=== PATIENT | male | born 1990 | race Two or more races ===

== ENCOUNTER 2021-02-10 15:58 | Emergency (ER) | payer MEDICAID, SELFPAY ==
[~2021-02-10] VITALS: Ht 182.9 cm; Wt 251.5 kg
[~2021-02-10 15:58] MED LIST: AMIO200T42 PO; APIX5TAB PO; DOCU100C33 PO; FURO40TA6 PO; NYST15PO2 TP; PEG15DRO4 EACHEYE
--- NOTE | 2021-02-10 16:11 | NUR ---
PT BIBA. PER EMS PT HAS HAD CP 05/18 SINCE 1100. PT TOOK 324MG OF ASA AND EMS GAVE HIM 0.4MG NITRO WITH NO RELIEF. PT STATES PAIN IS IN EPIGASTRIC REGION AND RADIATES TO HIS BACK, STATES IT FEELS DULL. PT HAS HX OF AFIB. PT RESTING IN [place], MONITORING IN PLACE, EKG DONE, NADN AT THIS TIME, WCTM.
[2021-02-10] MEDS ORDERED: PLEASE ENTER ALLERGIES MC SCH (17:30)
[2021-02-10] MEDS ORDERED: MAALOX/HYOSCYAMINE/LIDOCAINE 45 ML BTL PO ONE (17:30)
[2021-02-10] MEDS ORDERED: MAALOX/HYOSCYAMINE/LIDOCAINE 45 ML BTL ONE (17:42)
[2021-02-10 18:11] LABS: BASOPHILS % (AUTO) 0 % (0-1); EOSINOPHILS % (AUTO) 1 % (1-7); LYMPHOCYTES % (AUTO) 28 % (22-44); MEAN CORPUSCULAR HEMOGLOBIN 33.8 pg (27.5-34.5); MEAN CORPUSCULAR HGB CONC 34.8 g/dL (33.2-36.2); MEAN PLATELET VOLUME 9.1 fL (7.4-10.4); MONOCYTES % (AUTO) 5 % (2-9); NEUTROPHILS % (AUTO) 65 % (42-75); PLATELET COUNT 219 x10^3/uL (130-400); RED CELL DISTRIBUTION WIDTH 13.7 % (9.4-14.8)
[2021-02-10 18:20] LABS: ALANINE AMINOTRANSFERASE 38 U/L (12-78); ALBUMIN 3.1 g/dL (3.4-5.0); ANION GAP 6 mmol/L (5-15); CALCIUM 8.2 mg/dL (8.5-10.1); CHLORIDE 114 mmol/L (98-107); CREATININE 0.72 mg/dL (0.7-1.3)
[2021-02-10 18:22] LABS: ALKALINE PHOSPHATASE 160 U/L (45-117); BILIRUBIN,TOTAL 0.2 mg/dL (0.2-1.0); TOTAL PROTEIN 6.9 g/dL (6.4-8.2)
--- NOTE | 2021-02-10 18:49 | NUR ---
REPORT TO KEE ANGEL.
--- NOTE | 2021-02-10 18:51 | NUR ---
report from arlene assumed care of pt at this time
[2021-02-10 19:07] VITALS: BP 107/51
== END 2021-02-10 20:11 | disposition home or self-care (01) ==
LOC: ED 16:28
DX: K29.00 Acute gastritis without bleeding (principal); R07.89 Other chest pain; I10 Essential (primary) hypertension; I48.91 Unspecified atrial fibrillation
CPT/HCPCS: 36415; 80053; 83690; 85025; 93005; 99284

== ENCOUNTER 2021-05-08 10:56 | Emergency (ER) | payer MEDICAID ==
[~2021-05-08] VITALS: Ht 172.7 cm; Wt 175.0 kg
[2021-05-08] MEDS ORDERED: DILTIAZEM 125 MG in SODIUM CHLORIDE 0.9% 100 ML IV SCH (11:30)
[2021-05-08] MEDS ORDERED: DILTIAZEM 5 MG/ML, 5ML IV ONE (11:30)
[2021-05-08] MEDS ORDERED: PROPOFOL 10 MG/ML, 20ML ONE (11:41)
[2021-05-08 12:15] LABS: BASOPHILS % (AUTO) 0 % (0-1); EOSINOPHILS % (AUTO) 2 % (1-7); LYMPHOCYTES % (AUTO) 39 % (22-44); MEAN CORPUSCULAR HEMOGLOBIN 33.7 pg (27.5-34.5); MEAN CORPUSCULAR HGB CONC 34.6 g/dL (33.2-36.2); MEAN PLATELET VOLUME 8.7 fL (7.4-10.4); MONOCYTES % (AUTO) 5 % (2-9); NEUTROPHILS % (AUTO) 55 % (42-75); PLATELET COUNT 267 x10^3/uL (130-400); RED BLOOD COUNT 4.44 x10^6/uL (4.38-5.82); RED CELL DISTRIBUTION WIDTH 13.8 % (9.4-14.8)
[2021-05-08 12:23] LABS: CHLORIDE 112 mmol/L (98-107)
[2021-05-08 12:29] LABS: ALBUMIN 3.1 g/dL (3.4-5.0); ANION GAP 5 mmol/L (5-15); CREATININE 0.82 mg/dL (0.7-1.3)
[2021-05-08 12:51] VITALS: BP 103/67
[2021-05-08 12:52] LABS: TROPONIN I < 0.015 ng/mL (0.000-0.045)
[2021-05-08] MEDS ORDERED: SODIUM CHLORIDE FLUSH 10ML SYR IVF ONE (13:00)
== END 2021-05-08 13:21 | disposition home or self-care (01) ==
LOC: ED 13:05
DX: I48.0 Paroxysmal atrial fibrillation (principal); I10 Essential (primary) hypertension; R00.0 Tachycardia, unspecified
CPT/HCPCS: 36415; 71045; 80048; 82040; 83880; 84484; 85025; 92960; 93005